=== PATIENT | female | born 1985 | race Caucasian/White ===

== ENCOUNTER → 2017-02-18 | Outpatient (CLI) | payer BC ==
[~2017-02-18] MED LIST: FERR1TAB58 PO; IBUP-232 PO; PREN29TA PO
== END ==
LOC: HPND 12:35
PROVIDERS: ATTEND Obstetrics & Gynecology
DX: O36.5930 Maternal care for other known or suspected poor fetal growth, third trimester, not applicable or unspecified (principal); O43.893 Other placental disorders, third trimester; Z3A.32 32 weeks gestation of pregnancy
CPT/HCPCS: 76816; 76820; 76821

== ENCOUNTER → 2017-03-11 | Outpatient (CLI) | payer BC ==
--- NOTE | 2017-03-13 13:47 | MH ---
cc: KEISHA ZAVALA DATE OF ADMISSION 03/11/2017 REASON FOR ADMISSION Admitted to labor and delivery for induction. INDICATIONS 36-1/7 week with intrauterine growth restriction, grade 3 placenta with accessory lobe, oligohydramnios, elevated umbilical Dopplers. PLAN Cervidil induction and if the infant tolerates oxytocin and induction delivery. HISTORY OF PRESENT CONDITION The patient is a very sandra 30-year-old white female 1, para 0 with LMP 07/03/2016 and EDC 04/09/2017, currently at 36-1/7th weeks. She has been followed very closely for the last six weeks falling off the growth curve and what appeared to be some growth restriction. At this point in time, the surveillance suggests delivery is appropriate. She is otherwise in good health. SOCIAL HISTORY She does not smoke, drink or use illicit drugs. She exercises regularly. She is a pharmacist. LABORATORY DATA Her blood type is AB positive. Her hemoglobin is 12.1. Her Pap smear is normal. Her cultures were negative. She declines a genetic screening. Her Hep-C was nonreactive. Sickle cell was negative. Her 1-hour Glucola was 100 and her group B strep was negative. PHYSICAL EXAM She is a well-developed, well-nourished female. VITAL SIGNS: Her weight is 167, blood pressure is 120/62. Urine was negative. PELVIC: Cervix is anterior, soft and low. The today has a biophysical of 8/8, but she is below the 10th percentile. She had oligohydramnios and the placenta grade 3 with an accessory lobe. These are all indications for understanding the possibility of the needing some support in the NICU for a little while. The risks, benefits and alternatives of waiting have been discussed in detail with Kristie and we are an agreement that expediting delivery at this point is appropriate. MD JENNY Lai/TARIK /1:35 PM /1:41 PM
== END ==
LOC: HPND 10:48
PROVIDERS: ATTEND Obstetrics & Gynecology
DX: O36.5920 Maternal care for other known or suspected poor fetal growth, second trimester, not applicable or unspecified (principal); O43.892 Other placental disorders, second trimester; O35.8XX0 Maternal care for other (suspected) fetal abnormality and damage, not applicable or unspecified
CPT/HCPCS: 76816; 76818; 76820; 76821

== ENCOUNTER 2017-03-13 21:15 | Inpatient (IN) | payer BC ==
[~2017-03-13] VITALS: Ht 160 cm; Wt 84.8 kg
[2017-03-13] MEDS ORDERED: ONDANSETRON HCL 4 MG/2 ML VIAL IV PRN (22:45)
[2017-03-13] MEDS ORDERED: OXYTOCIN 30 UNITS 500ML PREMIX IV ONE (22:45)
[2017-03-13] MEDS ORDERED: CITRIC ACID-SODIUM CITRATE LIQ 30 ML UDC PO SCH (22:45)
[2017-03-13] MEDS ORDERED: LIDOCAINE HCL 1% 50 ML VIAL INFIL PRN (22:45)
[2017-03-13] MEDS ORDERED: NS 500 ML BOLUS IV PRN (22:45)
[2017-03-13] MEDS ORDERED: LACTATED RINGER'S 1000 ML BOLUS IV PRN (22:45)
[2017-03-13] MEDS ORDERED: NS 1000 ML OTHER PRN (22:45)
[2017-03-13] MEDS ORDERED: NS 1000 ML IV PRN (22:45)
[2017-03-13] MEDS ORDERED: ACETAMINOPHEN 325 MG TAB PO PRN (22:45)
[2017-03-13] MEDS ORDERED: SODIUM CHLORIDE 0.9% FLUSH 10 ML FLUSH IV FLUSH PRN ×2 (22:45)
[2017-03-13] MEDS ORDERED: MINERAL OIL 10 ML VIAL TOPICAL PRN (22:45)
[2017-03-13] MEDS ORDERED: LIDOCAINE HCL 1% 50 ML VIAL I-DERMAL PRN (22:45)
[2017-03-13 22:58] LABS: AUTOMATED NEUTROPHIL # 9.6 TH/MM3 (1.8-7.7); BASOPHIL # 0.1 TH/MM3 (0-0.2); BASOPHIL % 0.5 % (0.0-2.0); EOSINOPHIL # 0.1 TH/MM3 (0-0.4); HEMATOCRIT 35.8 % (35.0-46.0); HEMO FLAGS DIFF FINAL; LYMPH % 20.5 % (9.0-44.0); LYMPHOCYTE # 2.8 TH/MM3 (1.0-4.8); MEAN CELL VOLUME 89.6 FL (80.0-100.0); MEAN CORPUSCULAR HEMOGLOBIN 31.1 PG (27.0-34.0); MEAN CORPUSCULAR HGB CONC 34.7 % (32.0-36.0); MONO % 7.6 % (0.0-8.0); NEUT % 70.4 % (16.0-70.0); PLATELET COUNT 282 TH/MM3 (150-450); RED BLOOD COUNT 3.99 MIL/MM3 (4.00-5.30); RED CELL DISTRIBUTION WIDTH 13.3 % (11.6-17.2); WHITE BLOOD COUNT 13.7 TH/MM3 (4.0-11.0)
[2017-03-13] MEDS ORDERED: ZOLPIDEM TARTRATE 5 MG TAB PO PRN (23:00)
[2017-03-13] MEDS ORDERED: LACTATED RINGER'S 1000 ML INJ 500 ML IV SCH (23:00)
[2017-03-13] MEDS ORDERED: DINOPROSTONE 10 MG INSERT-LEAVE FOR 12 HOURS VAGINAL ONE (23:00)
[2017-03-13 23:26] LABS: BACTERIA, URINE RARE /hpf; BLOOD, URINE TRACE (NEG); CALCIUM OXALATE CRYSTALS,URINE OCC /hpf; COMMENT (UR) CULT NOT INDICATED; CULTURE IF INDICATED CULT NOT INDICATED; GLUCOSE,URINE NEG (NEG); KETONE, URINE TRACE mg/dL (NEG); MUCUS URINE FEW /lpf (OCC); NITRITE,URINE NEG (NEG); SQUAMOUS EPITHELIAL CELL URINE 1 /hpf (0-5); URINE COLOR YELLOW (YELLW/STRAW)
[2017-03-14] VITALS (17 sets, daily range): BP systolic 100–129; BP diastolic 50–76; PULSE 71–94; RESP 16–18; TEMP 98–98.4
[2017-03-14] MEDS ORDERED: PREN29TA PO (00:49)
[2017-03-14] MEDS ORDERED: FERR1TAB58 PO (00:49)
[2017-03-14] MEDS ORDERED: LACTATED RINGER'S 1000 ML IV SCH (08:00)
--- NOTE | 2017-03-14 08:43 | PD.LABORPN ---
Subjective Subjective pt feeling mild contractions q4-6 min, pain 2/10, denies LOF, VB, endorses good FM (*H&P dictated by Ángel) Objective Vital Signs Vital Signs Date Time Temp Pulse Resp B/P Pulse Ox O2 Delivery O2 Flow Rate FiO2 03/14/17 06:00 78 100/56 03/14/17 06:00 98.0 16 03/14/17 04:00 16 03/14/17 03:00 16 03/14/17 01:30 16 Objective Pelvic Exam: cervidil in place Presentation: [vtx] Membranes: [intact Uterine Contractions: [irregular on monitor, pt sitting up in bed] FHT's: Category: [I] Baseline: [140s] Reactive: [y] Variability: [y] Decels: [n] Assessment/Plan Problem List: (1) IUGR (intrauterine growth restriction) affecting care of mother Assessment and Plan 31 yo G1 with IUP at 36w2d by LMP c/w 11 wk sono, admit for IOL due to IUGR with abnl dopplers, borderline oligo and G3 placenta 1) asymmetric IUGR with AC sparing/borderline oligo/G3 placenta: pt aware risks of induction including intolerance and possibility of , also aware of risks of NICU admission based on prematurity; AQA, consents signed 2) GBS neg 3) status: vertex, gender unknown (per pt preference), Cat I tracing currently, known IUGR; s/p BMS 01/31 - 02/01/17 Karina Garcia MD Mar 14, 2017 08:43
[2017-03-14] MEDS ORDERED: OXYTOCIN 30 UNITS-500ML PREMIX 500 ML IV SCH (09:00)
[2017-03-14] MEDS ORDERED: POLYETHYLENE GLYCOL 17 GM PKG PO STA (11:38)
[2017-03-14] MEDS ORDERED: MISOPROSTOL 25 MCG SUPP VAGINAL ONE ×2 (11:45→16:00)
[2017-03-14] MEDS ORDERED: OXYTOCIN 30 UNITS/NS 500ML PREMIX IV SCH (21:00)
[2017-03-15] VITALS (71 sets, daily range): BP systolic 85–128; BP diastolic 52–82; PULSE 63–121; RESP 16–18; TEMP 98.2–98.7; O2SAT 99–100
--- NOTE | 2017-03-15 08:45 | PD.LABORPN ---
Subjective Subjective Did have contractions on cytotec GFM no leaking or bleeding Objective Vital Signs Vital Signs Date Time Temp Pulse Resp B/P Pulse Ox O2 Delivery O2 Flow Rate FiO2 03/15/17 06:52 74 119/74 03/15/17 06:51 98.3 18 03/15/17 06:24 68 110/71 03/15/17 06:00 18 03/15/17 05:00 18 03/15/17 03:55 18 03/15/17 03:52 71 03/15/17 03:52 112/73 03/15/17 03:00 18 03/15/17 01:06 18 03/15/17 01:04 65 111/67 Objective 80/1-2/ very posterior strip category 1 Assessment/Plan Problem List: (1) IUGR (intrauterine growth restriction) affecting care of mother Assessment and Plan very slow response to cervical ripening agents but infant tolerating the contractions very well will continue this slow induction and anticipate in the next 24 hours unless strip suggests intolerance of labor. Millie Neal MD Mar 15, 2017 08:45
[2017-03-15] MEDS ORDERED: fentaNYL 2MCG-BUPIV 0.125% INJ 100 ML ONE ×2 (16:57→22:09)
[2017-03-15] MEDS ORDERED: ePHEDrine/NS 25 MG/5 ML SYR ONE (16:59)
[2017-03-15] MEDS ORDERED: LORazepam 2 MG/ML VIAL IV ONE (19:45)
[2017-03-15] MEDS ORDERED: DEXAMETHASONE SOD PHOS 4 MG/ML VIAL IV ONE (22:30)
[2017-03-15] MEDS ORDERED: ePHEDrine/NS 25 MG/5 ML SYR IV PRN (22:30)
[2017-03-15] MEDS ORDERED: NO SYSTEM NARCOTICS PRN (22:30)
[2017-03-15] MEDS ORDERED: fentaNYL 2MCG-BUPIV 0.125% 100 ML EPIDURAL SCH (22:30)
[2017-03-15] MEDS ORDERED: DO NOT ADMINISTER ANTICOAGULANTS PRN (22:30)
[2017-03-16] VITALS (28 sets, daily range): BP systolic 73–132; BP diastolic 27–83; PULSE 66–93; RESP 16–18; TEMP 98.1–98.2; O2SAT 98
--- NOTE | 2017-03-16 03:25 | PD.OB.DELI ---
Anesthesia: Epidural Episiotomy: None Vaginal Delivery: Normal Presentation: Occiput anterior Nuchal Cord: None Delayed cord clamping (45 sec): Yes Infant: Female One Minute : 9 Five Minute : 9 Weight: 4 9 ounce Placenta: Spontaneous delivery, 3 vessel cord, Other Laceration: 2 deg Millie Neal MD Mar 16, 2017 03:25
[2017-03-16] MEDS ORDERED: WITCH HAZEL 50%/GLYCERIN 12.5% 40 PAD JAR TOPICAL PRN (03:30)
[2017-03-16] MEDS ORDERED: ALUMINUM/MAGNESIUM/SIMETH 30 ML CUP PO PRN (03:30)
[2017-03-16] MEDS ORDERED: SODIUM CHLORIDE 0.9% FLUSH 10 ML FLUSH IV FLUSH PRN (03:30)
[2017-03-16] MEDS ORDERED: BENZOCAINE 20% TOPICAL SPRAY 60 ML CAN TOPICAL PRN (03:30)
[2017-03-16] MEDS ORDERED: ACETAMINOPHEN 325 MG TAB PO PRN (03:30)
[2017-03-16] MEDS ORDERED: ONDANSETRON ODT 4 MG TAB PO PRN (03:30)
[2017-03-16] MEDS ORDERED: ZOLPIDEM TARTRATE 5 MG TAB PO PRN (03:30)
[2017-03-16] MEDS: IBUPROFEN 600 MG TAB PO PRN ×3 (08:47→22:12)
[2017-03-16] MEDS ORDERED: IBUP-232 PO (12:04)
--- NOTE | 2017-03-16 12:05 | HHI.DCPOC ---
Discharge Care Plan Diagnosis: (1) IUGR (intrauterine growth restriction) affecting care of mother (2) Vaginal delivery Report Symptoms to Your Doctor -Temperate above 100.5 degrees -Redness, of incision or excessive or foul smelling drainage -Unusual pain or calf pain -Increased vaginal bleeding -Painful or difficulty urinating -Feelings of extreme sadness or anxiety after 2 weeks Goals to Promote Your Health * To prevent worsening of your condition and complications * To maintain your health at the optimal level Directions to Meet Your Goals Take your medications as prescribed Follow your dietary instruction Follow activity as directed Ensure plenty of rest for recovery Drink fluids for hydration Keep your appointments as scheduled Take your immunizations and boosters as scheduled If your symptoms worsen call your PCP, if no PCP go to Urgent Care Center or Emergency Room Smoking is Dangerous to Your Health. Avoid second hand smoke Call the 24-hour crisis hotline for domestic abuse at Mulu Flores MD Mar 16, 2017 12:05
[2017-03-16] MEDS: DOCUSATE SODIUM 50 MG/SENNA 8.6 MG TAB PO PRN (15:02)
[2017-03-16] MEDS ORDERED: MEASLES, MUMPS, RUBELLA VACCINE 0.5 ML VIAL SQ ONE (16:00)
[2017-03-16] MEDS ORDERED: DIPHTH/TETANUS/ACEL PERTUSSIS (BOOSTER) 0.5 ML VIAL/PFS IM ONE (16:00)
[2017-03-16] MEDS: SODIUM CHLORIDE 0.9% FLUSH 10 ML FLUSH IV FLUSH SCH (20:50)
--- NOTE | 2017-03-17 09:41 | HHI.OB ---
Subjective Post Day: 1 Remarks s/p of IUGR female Objective Vitals/I&O Vital Signs Date Time Temp Pulse Resp B/P Pulse Ox O2 Delivery O2 Flow Rate FiO2 03/16/17 19:30 106/52 03/16/17 19:30 98.1 75 16 98 Objective Remarks GENERAL: Well-nourished, well-developed patient. CARDIOVASCULAR: Regular rate and rhythm without murmurs, gallops, or rubs. RESPIRATORY: Breath sounds equal bilaterally. No accessory muscle use. ABDOMEN/GI: Abdomen soft, non-tender. Fundus: Firm, non-tender at umbilicus. GENITOURINARY: Light to moderate bleeding. EXTREMITIES: No cyanosis or edema, non-tender, without signs of DVT. Medications and IVs Current Medications Medications (Trade) Dose Ordered Sig/Migue Route Start Time Stop Time Status Last Admin (NS Flush) 2 ml BID IV FLUSH 03/16/17 09:00 (NS Flush) 2 ml UNSCH PRN IV FLUSH 03/16/17 03:30 (Tylenol) 650 mg Q4H PRN PO 03/16/17 03:30 (Motrin) 600 mg Q6H PRN PO 03/16/17 03:30 03/16/17 22:12 (Americaine 20% Top Spr) 1 spray Q4H PRN TOPICAL 03/16/17 03:30 (Tucks Pads) 1 applic QID PRN TOPICAL 03/16/17 03:30 (Karen-Colace) 2 tab Q12H PRN PO 03/16/17 03:30 03/16/17 15:02 (Ambien) 5 mg HS PRN PO 03/16/17 03:30 (Mag-Al Plus Susp Liq) 15 ml Q8H PRN PO 03/16/17 03:30 (Zofran Odt) 4 mg Q6H PRN PO 03/16/17 03:30 Assessment/Plan Problem List: (1) Vaginal delivery (2) IUGR (intrauterine growth restriction) affecting care of mother Assessment and Plan PPD#1 continue routine care anticipate d/c to home tmrw supportive care Discharge Planning routine Karina Garcia MD Mar 17, 2017 09:40
[2017-03-17] MEDS: IBUPROFEN 600 MG TAB PO PRN ×2 (10:55→20:13)
[2017-03-17] MEDS: DOCUSATE SODIUM 50 MG/SENNA 8.6 MG TAB PO PRN ×2 (10:55→20:09)
[2017-03-17 20:00] VITALS: BP 112/68; PULSE 74; RESP 18; TEMP 98.2
--- NOTE | 2017-03-18 06:43 | HHI.OB ---
Subjective Post Day: 2 Remarks pt doing well, baby will have danna levels rechecked today Objective Vitals/I&O Vital Signs Date Time Temp Pulse Resp B/P Pulse Ox O2 Delivery O2 Flow Rate FiO2 03/17/17 20:00 98.2 74 18 112/68 Objective Remarks GENERAL: Well-nourished, well-developed patient. CARDIOVASCULAR: Regular rate and rhythm without murmurs, gallops, or rubs. RESPIRATORY: Breath sounds equal bilaterally. No accessory muscle use. ABDOMEN/GI: Abdomen soft, non-tender. Fundus: Firm, non-tender at umbilicus. GENITOURINARY: Light to moderate bleeding. EXTREMITIES: No cyanosis or edema, non-tender, without signs of DVT. Medications and IVs Current Medications Medications (Trade) Dose Ordered Sig/Migue Route Start Time Stop Time Status Last Admin (NS Flush) 2 ml BID IV FLUSH 03/16/17 09:00 (NS Flush) 2 ml UNSCH PRN IV FLUSH 03/16/17 03:30 (Tylenol) 650 mg Q4H PRN PO 03/16/17 03:30 (Motrin) 600 mg Q6H PRN PO 03/16/17 03:30 03/17/17 20:13 (Americaine 20% Top Spr) 1 spray Q4H PRN TOPICAL 03/16/17 03:30 (Tucks Pads) 1 applic QID PRN TOPICAL 03/16/17 03:30 (Karen-Colace) 2 tab Q12H PRN PO 03/16/17 03:30 03/17/17 20:09 (Ambien) 5 mg HS PRN PO 03/16/17 03:30 (Mag-Al Plus Susp Liq) 15 ml Q8H PRN PO 03/16/17 03:30 (Zofran Odt) 4 mg Q6H PRN PO 03/16/17 03:30 Assessment/Plan Problem List: (1) Vaginal delivery (2) IUGR (intrauterine growth restriction) affecting care of mother Assessment and Plan PPD#2 continue routine care anticipate d/c today supportive care Discharge Planning routine Kaylyn Wiley MD Mar 18, 2017 06:43
[2017-03-18 07:40] VITALS: BP 105/66; PULSE 70; RESP 16; TEMP 98.1
[2017-03-18] MEDS: SODIUM CHLORIDE 0.9% FLUSH 10 ML FLUSH IV FLUSH SCH (09:00)
== END 2017-03-18 14:14 | disposition home or self-care (01) | DRG 775 ==
LOC: H2EA 21:15 → H1EA 03-16 08:43
PROVIDERS: ADMIT Obstetrics & Gynecology; ATTEND Obstetrics & Gynecology
PROC: 00HU33Z Insertion of Infusion Device into Spinal Canal, Percutaneous Approach (ICD-10-PCS; 2017-03-15)
PROC: 3E0R3CZ (ICD-10-PCS; 2017-03-15)
PROC: 10E0XZZ Delivery of Products of Conception, External Approach (ICD-10-PCS; principal; 2017-03-16)
PROC: 0KQM0ZZ Repair Perineum Muscle, Open Approach (ICD-10-PCS; 2017-03-16)
DX: O36.5930 Maternal care for other known or suspected poor fetal growth, third trimester, not applicable or unspecified (principal); O70.1 Second degree perineal laceration during delivery; Z37.0 Single live birth; Z3A.36 36 weeks gestation of pregnancy
CPT/HCPCS: 59025; 76816; 76818; 76820; 76821; 81001; 85025; 86900; 86901; 88307; J2405; J2590; J7120